=== PATIENT | female | born 1945 | race Caucasian/White ===

== ENCOUNTER → 2021-05-07 12:24 | Outpatient (CLI) | payer OTHER, SELFPAY ==
--- NOTE | 2021-05-07 | DI.MG.S_ITS ---
UNILATERAL LEFT DIGITAL DIAGNOSTIC MAMMOGRAM 3D/2D SHORT-TERM FOLLOW-UP POST LUMPECTOMY: 05/07/2021 CLINICAL: Invasive Ductal Carcinoma, Left breast. Short term follow up. Comparison is made to exams dated: 12/20/2020 mammogram, 02/14/2020 mammogram, 01/21/2020 breast MRI, and 12/17/2019 mammogram - [facility]. There are scattered fibroglandular elements in left breast. There are post operative findings and post treatment changes in the left breast that are not significantly changed. No significant masses, calcifications, or other findings are seen in the breast. IMPRESSION: NEGATIVE There is no mammographic evidence of malignancy. Return to annual mammogram screening schedule is recommended. Patient is due for bilateral screening mammogram in approximately 6 months (November-December 2021 time period) Findings and recommendations were conveyed to the patient during today's evaluation. This exam was interpreted at Station ID: [id number]. NOTE: For mammograms, a report in lay terms will be sent to the patient. Approximately 15% of breast malignancies will not be visualized mammographically. In the management of a palpable breast mass, a negative mammogram must not discourage biopsy of a clinically suspicious lesion. Electronically Signed By: Antwon Zhang M.D. aty/:05/07/2021 13:20:27 copy to: Ander Coleman Judye ACR BI-RADS Category 1: Negative [id number]
== END ==
PROVIDERS: PCP Family Medicine; Referring Provider Surgery; Visit Provider Surgery
DX: R92.8 Other abnormal and inconclusive findings on diagnostic imaging of breast (principal); C50.912 Malignant neoplasm of unspecified site of left female breast
CPT/HCPCS: 77065; G0279